=== PATIENT | male | born 1970 | race Hispanic/Latino ===

== ENCOUNTER 2019-08-27 12:20 | Emergency (ER) | payer OTHER ==
[2019-08-27 12:51] LABS: APPEARANCE,URINE Cloudy (CLEAR); BILIRUBIN,URINE Negative (NEGATIVE); COLOR,URINE Orange (YELLOW); GLUCOSE, URINE (UA) Negative (NEGATIVE); KETONES,URINE Negative (NEGATIVE); LEUKOCYTE ESTERASE ,URINE Small (NEGATIVE); NITRATE,URINE Negative (NEGATIVE); OCCULT BLOOD,URINE Large (NEGATIVE); PROTEIN,URINE POS 2+ mg/dL (NEGATIVE)
[2019-08-27 13:06] LABS: RBC,URINE TNTC /HPF (0-1)
[2019-08-27 13:07] LABS: BACTERIA,URINE None Seen /HPF (None Seen); SQUAMOUS EPITHELIAL CELL,UR 0-2 /HPF (0-2); WBC,URINE 0-1 /HPF (0-1)
== END 2019-08-27 14:22 | disposition home or self-care (01) ==
LOC: EDH 12:20
DX: R33.9 Retention of urine, unspecified (principal); Z87.891 Personal history of nicotine dependence; Z98.890 Other specified postprocedural states
CPT/HCPCS: 51702; 81001

== ENCOUNTER 2021-08-20 08:43 | Observation (INO) | payer BC, OTHER ==
[2021-08-20] VITALS (17 sets, daily range): BP systolic 87–150; BP diastolic 63–91
[~2021-08-20] VITALS: Ht 175.3 cm; Wt 101.4 kg
[2021-08-20] MEDS ORDERED: LIDOCAINE HCL 2% JELLY 5 ML ONE (10:58)
[2021-08-20] MEDS ORDERED: ACETAMINOPHEN 325 MG TAB PO PRN ×2 (12:00)
[2021-08-20] MEDS ORDERED: LACTATED RINGERS 1000ML 1,000 ML IV SCH (12:00)
[2021-08-20] MEDS ORDERED: ONDANSETRON 4MG INJ IV PRN (12:00)
[2021-08-20] MEDS ORDERED: NITROGLYCERIN 0.4 MG SL TAB SL PRN (12:00)
[2021-08-20 12:10] LABS: BASOPHILS % (AUTO) 0.4 % (0.0-5.0); EOSINOPHILS % (AUTO) 0.4 % (0.0-8.0); LYMPHOCYTES % (AUTO) 18.8 % (21.0-51.0); MEAN CORPUSCULAR HEMOGLOBIN 29.8 pg (27.0-33.0); MEAN CORPUSCULAR HGB CONC 33.8 g/dL (32.0-36.0); MONOCYTES % (AUTO) 6.1 % (3.0-13.0); NEUTROPHILS % (AUTO) 73.8 % (40.0-77.0); PLATELET COUNT (AUTO) 224 K/uL (130-400); RED BLOOD CELL COUNT(AUTO) 5.34 MIL/uL (4.50-6.20); RED CELL DISTRIBUTION WIDTH 12.9 % (11.0-15.5)
[2021-08-20 12:19] LABS: CREATININE 0.8 mg/dL (0.5-1.5); POTASSIUM 3.8 mmol/L (3.5-5.1)
[2021-08-20 12:23] LABS: ALBUMIN 4.1 g/dL (3.5-5.0); BILIRUBIN,TOTAL 0.6 mg/dL (0.2-1.0); TOTAL PROTEIN, SERUM 7.5 g/dL (6.0-8.3)
[2021-08-20 12:25] LABS: INR 1.01 (0.85-1.15)
[2021-08-20] MEDS ORDERED: 0.9%NACL 1000ML 1,000 ML IV ONE (17:38)
[2021-08-20] MEDS ORDERED: SUCCINYLCHOLINE 200MG/10ML SYR ONE (17:46)
[2021-08-20] MEDS ORDERED: DEXAMETHASONE SOD PHOSPHATE 10MG/ML 1ML VIAL ONE (17:46)
[2021-08-20] MEDS ORDERED: LIDOCAINE PF 100MG/5ML (2%) SYRINGE 5ML ONE (17:46)
[2021-08-20] MEDS ORDERED: MIDAZOLAM HCL 1 MG/ML 2ML VIAL ONE (17:46)
[2021-08-20] MEDS ORDERED: ONDANSETRON 4MG INJ ONE (17:47)
[2021-08-20] MEDS ORDERED: PROPOFOL 10 MG/ML 20ML VIAL IV ONE (17:47)
[2021-08-20] MEDS ORDERED: FENTANYL CITRATE PF 50 MCG/1 ML 5ML AMP IV ONE (17:48)
[2021-08-20] MEDS ORDERED: MEPERIDINE-PF 25 MG/ML SYG ONE ×2 (17:48→18:15)
[2021-08-20] MEDS ORDERED: CEFAZOLIN SODIUM 1 GM VIAL ONE (17:53)
[2021-08-20] MEDS: CEFAZOLIN SODIUM 1 GM VIAL IVP SCH (19:30)
[2021-08-20] MEDS ORDERED: MEPERIDINE-PF 75 MG/ML SYG IM PRN (19:30)
[2021-08-20] MEDS ORDERED: ACETAMINOPHEN WITH CODEINE 1 TAB TAB PO PRN (20:00)
[2021-08-20] MEDS: 0.9%NACL 1000ML 1,000 ML IV SCH (20:00)
[2021-08-20] MEDS: FAMOTIDINE 20MG VIAL IV SCH (20:46)
[2021-08-21] MEDS: CEFAZOLIN SODIUM 1 GM VIAL IVP SCH ×2 (04:17→11:38)
[2021-08-21 04:34] VITALS: BP 118/72
[2021-08-21 05:01] LABS: HEMATOCRIT 45.3 % (42-54); MEAN CORPUSCULAR HEMOGLOBIN 29.2 pg (27.0-33.0); MEAN CORPUSCULAR HGB CONC 32.5 g/dL (32.0-36.0); MEAN CORPUSCULAR VOLUME 89.9 fL (79-99); RED BLOOD CELL COUNT(AUTO) 5.04 MIL/uL (4.50-6.20); RED CELL DISTRIBUTION WIDTH 13.2 % (11.0-15.5); WHITE BLOOD COUNT (AUTO) 9.3 K/uL (4.8-10.8)
[2021-08-21 05:16] LABS: CREATININE 0.9 mg/dL (0.5-1.5); POTASSIUM 4.1 mmol/L (3.5-5.1)
[2021-08-21] MEDS: 0.9%NACL 1000ML 1,000 ML IV SCH (05:24)
[2021-08-21 10:10] VITALS: BP 120/80
[2021-08-21] MEDS: FAMOTIDINE 20MG VIAL IV SCH (10:13)
[2021-08-21] MEDS ORDERED: CEPH500B PO (11:32)
[2021-08-21 11:36] VITALS: BP 125/79
== END 2021-08-21 15:10 | disposition home or self-care (01) ==
LOC: EDH 08:43 → EDHIP 11:49 → 3BH 19:41
PROVIDERS: ADMIT Internal Medicine; ATTEND Internal Medicine
DX: R33.9 Retention of urine, unspecified (principal); Z20.822 Contact with and (suspected) exposure to COVID-19; N32.0 Bladder-neck obstruction; N42.9 Disorder of prostate, unspecified; N40.1 Benign prostatic hyperplasia with lower urinary tract symptoms; E11.9 Type 2 diabetes mellitus without complications; N13.30 Unspecified hydronephrosis; N36.5 Urethral false passage; Z90.79 Acquired absence of other genital organ(s)
CPT/HCPCS: 36415 ×2; 52005; 71045; 74176; 74430; 80048; 80053; 82948; 84484; 85025; 85027; 85610; 87635; 96361; 96374; 96375; 96376; 99285; A4354; A4358; A4930 ×2; C1758; C1769; G0378 ×26; J0330; J0690 ×3; J1100; J2001; J2175 ×2; J2250; J2405; J2704; J3010; J3490; J7030; Q9958